=== PATIENT | female | born 1935 | race Caucasian/White ===

== ENCOUNTER 2016-07-21 18:38 | Emergency (ER) | payer MEDICARE, OTHER ==
--- NOTE | 2016-07-21 20:25 | ERNOTE ---
Dyspnea - Date Date of Service: 07/21/16 - General Presenting Symptoms: shortness of breath Time Seen by Provider: 07/21/16 20:11 Source: patient, family, RN notes reviewed Exam Limitations: no limitations - Immun/Allergies/Home Medications Immunizations: IMMUNIZATION HX Immunizations Up to Date Yes History of Influenza Vaccine Yes Hx Pneumococcal Vaccination Yes Allergies/Adverse Reactions: Allergies aspirin Adverse Reaction (Mild, Verified 07/21/16 18:57) Nausea Home Medications: HOME MEDICATIONS Acetaminophen [Tylenol] 650 mg PO Q4H PRN 12/09/15 [Last Taken Unknown] Levothyroxine Sodium [Synthroid] 75 mcg PO DAILY 12/09/15 [Last Taken Unknown] Meloxicam [Mobic] 15 mg PO DAILY 12/09/15 [Last Taken Unknown] Multivitamin [One Daily Essential] 1 each PO DAILY 12/09/15 [Last Taken Unknown] Omeprazole [Prilosec] 20 mg PO DAILY 12/09/15 [Last Taken Unknown] Simvastatin [Zocor] 40 mg PO HS 12/09/15 [Last Taken Unknown] Lisinopril [Zestril] 5 mg PO DAILY #30 tablet 12/10/15 [Last Taken Unknown] Cefuroxime Axetil [Ceftin] 500 mg PO BID #10 tab 05/20/16 [Last Taken Unknown] - History of Present Illness Narrative: 81 y/o female brought to the ED by her family for difficulty breathing. She reports starting to have a sore throat this morning. This has made her feel like it is somewhat difficult to breathe. Her family believes she then became anxious, further increasing her respiratory difficulty. After being here and resting she is no longer feeling short of breath. She also reports nasal congestion. Treatment ANALYTICS SPECIALIST: none Initiating event: Reports: upper resp illness Frequency of episodes: Reports: no prior episodes Associated Symptoms-Dyspnea: Reports: anxiety. Denies: fever/chills, sweating, chest pain/discomfort, palpitations, cough, wheezing, ankle/leg swelling, dizziness, lightheadedness, weakness, tingling of hands/face, loss of appetite Review of Systems - Review of Systems Constitutional: Absent: recent illness, fever, malaise EYE: Present: no symptoms reported ENT: Present: nose congestion, nasal drainage, sore throat. Absent: ear pain Respiratory: Absent: cough, orthopnea, wheezing, stridor Cardiology: Absent: chest pain, palpitations, edema Gastrointestinal/Abdominal: Absent: nausea, vomiting, diarrhea, abdominal pain Genitourinary: Present: no symptoms reported Musculoskeletal: Absent: muscle pain, joint pain Skin: Absent: rash, lesions Neurological: Absent: headache, dizziness/light-headedness Endocrine: Present: no symptoms reported Hematologic/Lymphatic: Present: no symptoms reported Psych: Present: anxiety. Absent: depressed - Patient's Past Medical History Patient History - Medical: Dementia, GERD, Hypothyroidism, Osteoarthritis, Renal Disease, Seizures, UTI'S Patient History - Cardiac/Respiratory: No pertinent hx Patient History - Cancer: No Hx of Cancer Patient History - Surgical Procedures: Other Patient History - Other: None LMP (females 10-50): Menopausal - Social History Living Situations: home Abuse History: No History of abuse Psych History: No pertinent hx Smoking Status: Never smoker Alcohol Use: none Drug Use: none - Immunizations Immunizations Up to Date: Yes Hx Pneumococcal Vaccination: Yes History of Influenza Vaccine: Yes Physical Exam - Physical Exam General Appearance: Present: wd/wn, alert, no apparent distress Ears, Nose, Throat: Present: hearing grossly normal, nasal congestion, pharyngeal erythema. Absent: abnormal TM (R), abnormal TM (L), sinus pain/ drainage, pharyngeal swelling, tonsillar exudate, tonsillar swelling Neck: Present: normal inspection, nontender, supple Respiratory: Present: no respiratory distress, normal breath sounds, no accessory muscle use, lungs clear Cardiovascular/Chest: Present: regular rate, rhythm, no murmur Extremity Exam: Present: normal inspection, no edema Neurological Exam: Present: alert, oriented, normal mood/affect, no motor/ sensory deficits Skin Exam: Present: normal color, warm/dry ED Progress - Results and Orders Patient's Lab Results:: I have reviewed the patient's lab results. - Vital Signs Patient's Vital Signs:: I have reviewed the patient's vital signs. Vital Signs: Vital Signs 07/21/16 18:45 Temperature 36.5 C Pulse Rate 84 Respiratory 20 Rate Blood Pressure 174/61 O2 Sat by Pulse 96 Oximetry - Progress/Reassessment Chief Complaint: Dyspnea Progress:: Improved Departure Clinical Impression: Nasopharyngitis acute, Anxiety about health - Departure Disposition: Home self-care Condition: Good Instructions: Upper Respiratory Infection, Adult, [id number] Additional Instructions: Continue your routine medications Nasal saline spray as needed for congestion Humidifier Drink plenty of water
[2016-07-21 21:48] VITALS: BP 185/77
--- OUTSIDE RECORDS SUMMARY | 2016-07-21 22:00 | XMS REPORT | Continuity of Care Document ---
:1935 Author Organization [facility] Address [place] [address] Care Team Providers Name Role Phone Unavailable Primary Care Provider Unavailable Source Comments This disclosure is being made pursuant to the [employer] program and maynot contain all information available regarding this patient.[facility] Active Allergies and Adverse Reactions Not on File Current Medications Be aware that medications may not be up to date as of this document. Alwaysverify current medications with the patient. 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
== END 2016-07-21 20:25 | disposition home or self-care (01) ==
LOC: ER 18:38
DX: J00 Acute nasopharyngitis [common cold] (principal); F41.8 Other specified anxiety disorders

== ENCOUNTER 2017-05-02 06:43 | Emergency (ER) | payer MEDICARE, OTHER ==
[2017-05-02 06:55] VITALS: BP 151/82
--- NOTE | 2017-05-02 07:13 | ERNOTE ---
Medical Problem HPI - Narrative Date of Service: 05/02/17 - General Chief Complaint: General Assessment Time Seen by Provider: 05/02/17 07:05 Source: patient Exam Limitations: no limitations - Immun/Allergies/Home Medications Immunizations: IMMUNIZATION HX Immunizations Up to Date Yes History of Influenza Vaccine Yes Hx Pneumococcal Vaccination Yes Allergies/Adverse Reactions: Allergies aspirin Adverse Reaction (Mild, Verified 05/02/17 06:55) Nausea Home Medications: HOME MEDICATIONS Acetaminophen [Tylenol] 650 mg PO Q4H PRN 12/09/15 [Last Taken Unknown] Levothyroxine Sodium [Synthroid] 75 mcg PO DAILY 12/09/15 [Last Taken Unknown] Meloxicam [Mobic] 15 mg PO DAILY 12/09/15 [Last Taken Unknown] Multivitamin [One Daily Essential] 1 each PO DAILY 12/09/15 [Last Taken Unknown] Omeprazole [Prilosec] 20 mg PO DAILY 12/09/15 [Last Taken Unknown] Simvastatin [Zocor] 40 mg PO HS 12/09/15 [Last Taken Unknown] Lisinopril [Zestril] 5 mg PO DAILY #30 tablet 12/10/15 [Last Taken Unknown] Cephalexin Monohydrate [Keflex] 500 mg PO QID #40 cap 05/02/17 [Last Taken Unknown] - History of Present History Narrative: Patient presents to the ED for spots of blood coming from her left nipple since yesterday. She has never had this before. No other bleeding. No blood in stool, brusies or blood in urine. No easy bruising. No fever or trauma. Denies pain with this. By report had mammogram in September this year. No fever. Nothign makes this better or worse. Timing: intermittent Severity: mild Modifying Factors - (Improves): Present: other - nothing Modifying Factors - (Worsens): Present: other - nothing Review of Systems - Review of Systems Constitutional: Absent: fever Respiratory: Absent: shortness of breath Cardiology: Absent: chest pain Gastrointestinal/Abdominal: Absent: abdominal pain Genitourinary: Absent: hematuria Skin: Absent: rash Neurological: Absent: weakness - Patient's Past Medical History Patient History - Medical: Dementia, GERD, Hypothyroidism, Osteoarthritis, Renal Disease, Seizures, UTI'S Patient History - Cardiac/Respiratory: No pertinent hx Patient History - Cancer: No Hx of Cancer Patient History - Surgical Procedures: Other Patient History - Other: None - Social History Abuse History: No History of abuse Psych History: No pertinent hx Smoking Status: Never smoker - Immunizations Immunizations Up to Date: Yes Hx Pneumococcal Vaccination: Yes History of Influenza Vaccine: Yes Physical Exam - Physical Exam General Appearance: Present: alert, no apparent distress Head Exam: Present: normal inspection, no evidence of injury Eye Exam: Normal inspection: bilateral, PERRL: bilateral Ears, Nose, Throat: Present: normal ENT inspection Neck: Present: normal inspection Respiratory: Present: no respiratory distress, normal breath sounds, no accessory muscle use, lungs clear Cardiovascular/Chest: Present: regular rate, rhythm, normal peripheral pulses Gastrointestinal/Abdominal: Present: normal bowel sounds, nontender, soft Pelvic Exam: Present: other - with female RN in room. No redness, no active bleeding, mo masses. no abnormalities found on bilateral breast exam. Back Exam: Absent: CVA tenderness (R), CVA tenderness (L) Extremity Exam: Present: normal inspection Neurological Exam: Present: alert, no motor/sensory deficits Skin Exam: Present: normal color, warm/dry ED Progress - Vital Signs Patient's Vital Signs:: I have reviewed the patient's vital signs. Vital Signs: Vital Signs 05/02/17 06:52 Temperature 36.8 C Pulse Rate 64 Respiratory 12 Rate Blood Pressure 151/82 O2 Sat by Pulse 99 Oximetry - Progress/Reassessment Chief Complaint: General Assessment Progress Note-Subjective: 05/02/17 07:[address] morley, he recommends ABx and office follow-up, no Dx testing at this time as she had mammogram 3 months ago - negative for malignancy at that time. Pt agreeable. I discussed warning signs and reasons to return as well as the need for close f/u. Departure Clinical Impression: Bleeding from nipple in female - Departure Disposition: Home self-care Condition: Stable Additional Instructions: Take antibiotic as directed. Call Dr Morley's office this morning for an appointment time for a re-check. Return for fever, pain, increased bleeding or if your condition worsens or changes in any way. Referrals: Narendra Morley MD [Primary Care Provider] - Prescriptions: Cephalexin Monohydrate [Keflex] 500 mg PO QID #40 cap
== END 2017-05-02 07:23 | disposition home or self-care (01) ==
LOC: ER 06:43
DX: N64.59 Other signs and symptoms in breast (principal); K21.9 Gastro-esophageal reflux disease without esophagitis; E03.9 Hypothyroidism, unspecified; M19.90 Unspecified osteoarthritis, unspecified site

== ENCOUNTER 2017-06-13 12:18 | Day surgery (SDC) | payer MEDICARE, OTHER ==
[~2017-06-13 12:18] MED LIST: RINGER'S SOLUTION,LACTATED 1,000 ML IV PRN; ceFAZolin SODIUM 2 GM in DEXTROSE 5 % IN WATER 50 ML IV PRN
[2017-06-13] MEDS ORDERED: RINGER'S SOLUTION,LACTATED 900 ML IV ONE (15:00)
[2017-06-13] MEDS: HYDROcodone/ACETAMINOPHEN 1 EACH TABLET PO PRN ×2 (16:49→17:45)
--- NOTE | 2017-06-13 16:49 | OR ---
Operative Report - Dictated Report Narrative: Date: 06/13/2017 Preoperative dx: Left bloody nipple discharge and 5 mm subareolar mass at 6:00 Postoperative dx: same Procedure: Left nipple exploration, left excisional breast biopsy from 3:00-9:00 Staff surgeon: Callum Mariano MD Asst surgeon: Gray Henderson# Anesthesia: Local/MAC EBL: minimal Specimen: subareolar breast from 3-9:00 Comps: none apparent Drains: none Description: The left breast was prepped and draped in a sterile fashion. A nipple block was performed. Attempts at cannulating the affected duct with lacrimal probes were unsuccessful. An circumareolar incision was carried out from 3:00 to 9:00. Dissection was taken under the surface of the areola to the base of the mammilla. The ducts were sequentially transected until we found the one with bloody discharge. Once found this duct was followed to the tip of the mammilla and excised downward to the subareolar mammary zone where the lobule from 3-9: 00 was excised with electrocautery. The specimen was submitted without orientation for pathologic examination. Hemostasis appeared to be adequate. The circumareolar incision was closed in layers with running sutures of 4-0 Vicryl. The mamilla incision was closed with interrupted 4-0 vicryl sutures on a P-3 needle. Both incisions were then sealed with dermabond. The patient tolerated the procedure well without apparent complications and was discharged from the operating room in stable condition.
[2017-06-13] MEDS ORDERED: BUPIVACAINE HCL/EPINEPHRINE 50 ML VIAL IJ ONE (17:10)
[2017-06-13 18:19] VITALS: BP 166/65
== END 2017-06-13 12:19 | disposition home or self-care (01) ==
LOC: AMB 12:18
PROVIDERS: ATTEND Specialist
PROC: 0HBU0ZX Excision of Left Breast, Open Approach, Diagnostic (ICD-10-PCS; principal; 2017-06-13)
DX: M19.90 Unspecified osteoarthritis, unspecified site; E03.9 Hypothyroidism, unspecified; F03.90 Unspecified dementia, unspecified severity, without behavioral disturbance, psychotic disturbance, mood disturbance, and anxiety; I10 Essential (primary) hypertension; K21.9 Gastro-esophageal reflux disease without esophagitis; Z68.27 Body mass index [BMI] 27.0-27.9, adult; N64.52 Nipple discharge; Z87.891 Personal history of nicotine dependence; D24.2 Benign neoplasm of left breast
CPT/HCPCS: 88305